=== PATIENT | male | born 1980 | race Caucasian/White ===

== ENCOUNTER 2020-12-09 10:17 | Emergency (ER) | payer BC ==
[~2020-12-09] VITALS: Ht 188 cm; Wt 100.0 kg
[2020-12-09 10:35] VITALS: BP 142/86
[2020-12-09] MEDS ORDERED: apixaban 5mg tablet PO STA (11:08)
[2020-12-09] MEDS ORDERED: APIX5TAB3 PO ×2 (11:10)
== END 2020-12-09 12:08 | disposition home or self-care (01) ==
LOC: ER 10:17
DX: I82.402 Acute embolism and thrombosis of unspecified deep veins of left lower extremity (principal)
CPT/HCPCS: 93971; 99283; 99284